=== PATIENT | female | born 1955 | race Caucasian/White ===

== ENCOUNTER 2016-08-19 20:19 | Inpatient (IN) | payer SELFPAY ==
[2016-08-19 21:20] LABS: ALANINE AMINOTRANSFERASE 67 U/L (9-52); ALBUMIN 2.7 g/dL (3.5-5.0); ALKALINE PHOSPHATASE 282 U/L (38-126); ANION GAP 9 (5-19); ASPARTATE AMINO TRANSFERASE 58 U/L (14-36); BILIRUBIN,DIRECT 0.4 mg/dL (0.0-0.4); BILIRUBIN,TOTAL 0.9 mg/dL (0.2-1.3); BLOOD UREA NITROGEN 14 mg/dL (7-20); CALCIUM 8.2 mg/dL (8.4-10.2); CARBON DIOXIDE 31 mmol/L (22-30); CHLORIDE 95 mmol/L (98-107); CREATININE RESULT 1.37 mg/dL (0.52-1.25); GLUCOSE 128 mg/dL (75-110); LIPASE 76.7 U/L (23-300); POTASSIUM 3.5 mmol/L (3.6-5.0); SODIUM 135.3 mmol/L (137-145); TOTAL PROTEIN 5.8 g/dL (6.3-8.2)
[2016-08-19 21:21] LABS: HEMATOCRIT 38.9 % (36.0-47.0); HEMOGLOBIN 13.1 g/dL (12.0-15.5); HGB HCT DIFFERENCE 0.4; MEAN CORPUSCULAR HEMOGLOBIN 28.6 pg (27.0-33.4); MEAN CORPUSCULAR HGB CONC 33.6 g/dL (32.0-36.0); MEAN CORPUSCULAR VOLUME 85 fl (80-97); RED BLOOD COUNT 4.57 10^6/uL (3.72-5.28); RED CELL DISTRIBUTION WIDTH 13.6 % (11.5-14.0); WHITE BLOOD COUNT 24.9 10^3/uL (4.0-10.5)
[2016-08-19 21:28] LABS: AMORPHOUS SEDIMENT,URINE TRACE /HPF; APPEARANCE,URINE CLOUDY; BILIRUBIN,URINE NEGATIVE (NEGATIVE); GLUCOSE, URINE NEGATIVE (NEGATIVE); KETONES,URINE NEGATIVE (NEGATIVE); LEUKOCYTE ESTERASE,URINE LARGE (NEGATIVE); NITRITE,URINE NEGATIVE (NEGATIVE); PROTEIN,URINE 100 mg/dL (NEGATIVE); URINE SPECIFIC GRAVITY 1.012
[2016-08-19 21:40] LABS: BAND NEUTROPHILS % (MANUAL) 3 % (3-5); BASOPHILS % (MANUAL) 0 % (0-2); EOSINOPHILS % (MANUAL) 1 % (0-6); LYMPHOCYTES % (MANUAL) 21 % (13-45); TOTAL CELLS COUNTED 100
[2016-08-19 21:43] LABS: STOMATOCYTES SLIGHT; TARGET CELLS SLIGHT; TOXIC GRANULATION SLIGHT
[2016-08-19] MEDS ORDERED: NORMAL SALINE 1000 ML 1,000 ML IV ONE (22:21)
[2016-08-19] MEDS ORDERED: CEFTRIAXONE 2 GM/D5W RTU 50 ML IV ONE (22:23)
--- NOTE | 2016-08-19 22:30 | ER Document Report ---
ED General - General Chief Complaint: Shortness Of Breath Stated Complaint: BREATHING DIFFICULTY Notes: Patient is complaining of difficulty breathing for the past 4 days. She says that what she is experiencing is a feeling of pressure, pushing down into her abdomen, every time she eats. As the patient weighs 152 kg, she could be experiencing considerable time with this symptom. Patient says that she's feeling nauseated but is not having any vomiting. Has problems with constipation says her last bowel movement was about a week ago. Has not had any fever. Has felt dizzy and weak at times. No UTI symptoms. No URI or cough symptoms. No fever. The patient has a very large mid abdominal hernia which she's had for 25 years, although it has enlarged over the last 5 years. She has been referred to surgeons in [place] and was evaluated there a year or so ago and told that she needed to lose about 100 pounds before they would consider doing surgery for this hernia. Patient says that she has lost about 30 pounds. 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 TRAVEL OUTSIDE OF THE [place] IN LAST 30 DAYS: No - Related Data Allergies/Adverse Reactions: No Known Allergies Allergy (Unverified 01/11/15 12:30) Past Medical History - Social History Smoking Status: Never Smoker Frequency of alcohol use: None Drug Abuse: None Family History: Reviewed & Not Pertinent GI Medical History: Reports: Hx Gastroesophageal Reflux Disease, Hx Hiatal Hernia, Other - Umbilical hernia Past Surgical History: Reports: Other - Splenectomy - Immunizations Hx Diphtheria, Pertussis, Tetanus Vaccination: Yes Review of Systems - Review of Systems Notes: REVIEW OF SYSTEMS: CONSTITUTIONAL : Denies fever. EENT: Denies eye, ear, nose or mouth or throat pain or other symptoms. CARDIOVASCULAR: Denies chest pain. RESPIRATORY: Some cough cough, chest congestion, see history of present illness regarding "shortness of breath". GASTROINTESTINAL: See history of present illness. No Vomiting, or diarrhea. Last bowel movement about a week ago. GENITOURINARY: Denies difficulty or painful urinating, urinary frequency, blood in urine. MUSCULOSKELETAL: Denies back or neck pain. Denies joint pain or swelling. SKIN: Denies rash or skin lesions. NEUROLOGICAL: Denies LOC or altered mental status. Denies headache. Denies sensory loss or motor deficits. ALL OTHER SYSTEMS REVIEWED AND NEGATIVE. Physical Exam - Vital signs Vitals: Temp Pulse Resp BP Pulse Ox 99.7 F 87 20 138/72 H 94 08/19/16 20:20 08/19/16 20:20 08/19/16 20:20 08/19/16 20:20 08/19/16 20:20 Interpretation: Febrile - Notes Notes: PHYSICAL EXAMINATION: GENERAL: Well-appearing, in no acute distress. Low-grade fever. All other vital signs essentially normal. Weight 152 kg HEAD: Atraumatic, normocephalic. NECK: Normal range of motion, supple. LUNGS: Breath sounds clear and equal bilaterally. HEART: Regular rate and rhythm without murmurs. ABDOMEN: Soft. Patient has a very large mid abdominal hernia, which is not especially tender. It's not tense or swollen or erythematous. The adjacent abdomen is soft throughout. There is no significant tenderness. No guarding and no rebound present. BACK: No tenderness throughout entire back. EXTREMITIES: Normal range of motion without pain. NEUROLOGICAL: Normal speech, normal gait. Normal sensory, motor, and reflex exams. Awake, alert, and oriented x3. Cranial nerves normal. PSYCH: Normal mood, normal affect. SKIN: Warm, dry, no rashes. Course - Re-evaluation Re-evalutation: 08/19/16 23:46 Labs reviewed. Patient has a significant leukocytosis. Urine shows what appears to be a definite UTI. I carefully examine the patient's umbilical hernia and at this time, I don't think it's infected. I spoke with Dr. Scott this patient's primary care provider who will admit her for antibiotics and observation. He requests a CT scan of her abdomen. Patient is going to receive 2 g of cefepime IV. Admission to [facility]. - Vital Signs Vital signs: Temp Pulse Resp BP Pulse Ox 101.1 F H 87 20 138/72 H 94 08/19/16 22:40 08/19/16 20:20 08/19/16 20:20 08/19/16 20:20 08/19/16 20:20 - Laboratory Result Diagrams: 08/19/16 20:54 08/19/16 20:54 Laboratory results interpreted by me: 08/19/16 08/19/16 08/19/16 20:50 20:54 20:54 WBC 24.9 H Plt Count 144 L Monocytes % (Manual) 17 H Metamyelocytes % 1 H Abs Neuts (Manual) 15.2 H Abs Lymphs (Manual) 5.2 H Abs Monocytes (Manual) 4.2 H Sodium 135.3 L Potassium 3.5 L Chloride 95 L Carbon Dioxide 31 H Creatinine 1.37 H Est GFR ( Amer) 48 L Est GFR (Non-Af Amer) 39 L Glucose 128 H Calcium 8.2 L AST 58 H ALT 67 H Alkaline Phosphatase 282 H Total Protein 5.8 L Albumin 2.7 L Urine Protein 100 H Urine Blood SMALL H Urine Urobilinogen 2.0 H Ur Leukocyte Esterase LARGE H Discharge - Discharge Clinical Impression: Post-splenectomy Urinary tract infection Qualifiers: Urinary tract infection type: site unspecified Hematuria presence: without hematuria Qualified Code(s): N39.0 - Urinary tract infection, site not specified Leukocytosis Qualifiers: Leukocytosis type: bandemia Qualified Code(s): D72.825 - Bandemia Umbilical hernia Qualifiers: Obstruction and gangrene presence: without obstruction or gangrene Qualified Code(s): K42.9 - Umbilical hernia without obstruction or gangrene Condition: Stable Disposition: ADMITTED OBSERVATION Admitting Provider: Scott Unit Admitted: [facility]
[2016-08-19] MEDS ORDERED: CEFEPIME 2 GM/D5W RTU 50 ML IV ONE (22:58)
[2016-08-19] MEDS ORDERED: ACETAMINOPHEN 325 MG TABLET PO PRN (23:03)
[2016-08-19] MEDS ORDERED: ONDANSETRON HCL INJ/PF 4 MG/2 ML SDV IV PRN (23:03)
[2016-08-19] MEDS ORDERED: NORMAL SALINE 1000 ML 1,000 ML IV PRN (23:07)
[2016-08-19] MEDS ORDERED: IPRATROPIUM/ALBUTEROL 0.5-2.5 MG/3 ML AMPUL NEB PRN (23:08)
[2016-08-20 05:09] VITALS: BP 132/76
[2016-08-20] MEDS ORDERED: DOCUSATE SODIUM 100 MG CAPSULE PO SCH (10:00)
[2016-08-20] MEDS ORDERED: CEFEPIME 1 GM/D5W RTU 1 GM/50 ML RTUPB IV SCH (10:00)
== END 2016-08-20 05:50 | disposition left against medical advice (07) | DRG 690 ==
LOC: ER 20:19 → EH 23:03 → OBSVTOIN 23:03 → EH 23:16 → UNDOADMOB 23:16
PROVIDERS: ADMIT Family Medicine; ATTEND Family Medicine
DX: N39.0 Urinary tract infection, site not specified (principal); Z68.43 Body mass index [BMI] 50.0-59.9, adult; K42.9 Umbilical hernia without obstruction or gangrene; E66.9 Obesity, unspecified; K21.9 Gastro-esophageal reflux disease without esophagitis; Z90.81 Acquired absence of spleen; D72.825 Bandemia
CPT/HCPCS: 36415; 71020; 74020; 74176; 80053; 81001; 83605; 83690; 85025; 87040; 87077; 87086; 87088; 87186; 96361; 96365; 99285; J0692; J7030